=== PATIENT | male | born 1955 | race Caucasian/White ===

== ENCOUNTER → 2016-12-06 | Outpatient (CLI) | payer OTHER ==
--- NOTE | 2016-12-06 16:51 | XR ---
EXAMINATION TYPE: XR ankle complete LT DATE OF EXAM: 12/06/2016 CLINICAL HISTORY: Left ankle pain history of prior fracture 30 years ago TECHNIQUE: Frontal, lateral and oblique images of the left ankle are obtained. COMPARISON: None. FINDINGS: There is no acute fracture/dislocation evident in the left ankle. There is fixating screw s through healed fracture distal fibular diaphysis. There are fixating K wires and cerclage wires ove r healed fracture medial malleolus. Subchondral cystic change medial malleolus is present. The ankle mortise appears within normal limits. There is small inferior calcaneal spur. The overlying soft tis lupe appears unremarkable. IMPRESSION: There is no acute fracture or dislocation in the left ankle. Postsurgical and degenerati ve change left ankle noted.
== END | disposition home or self-care (01) ==
LOC: RADXRYALE 16:25
PROVIDERS: ATTEND Family Medicine
DX: T84.84XA Pain due to internal orthopedic prosthetic devices, implants and grafts, initial encounter (principal)

== ENCOUNTER → 2017-09-17 | Outpatient (CLI) | payer OTHER ==
--- NOTE | 2017-09-17 17:15 | XR ---
EXAMINATION TYPE: XR lumbar spine 2 or 3V DATE OF EXAM: 09/17/2017 COMPARISON: None HISTORY: Foot numbness. Polyneuropathy. TECHNIQUE: 3 views FINDINGS: The lumbar vertebra have normal alignment. There is minor spurring of the endplates. [employer] ior elements are intact. I see no significant disc space narrowing. Sacroiliac joints appear intact. IMPRESSION: Mild degenerative changes typical for age. No fracture.
== END | disposition home or self-care (01) ==
LOC: RADXRYALE 16:18
PROVIDERS: ATTEND Nurse Practitioner Family
DX: M47.816 Spondylosis without myelopathy or radiculopathy, lumbar region (principal); R20.2 Paresthesia of skin; G62.9 Polyneuropathy, unspecified
CPT/HCPCS: 72100

== ENCOUNTER → 2017-09-29 | Outpatient (CLI) | payer OTHER ==
--- NOTE | 2017-09-30 10:19 | US ---
EXAMINATION TYPE: US venous doppler duplex LE BI DATE OF EXAM: 09/29/2017 5:50 PM COMPARISON: NONE CLINICAL HISTORY: R20.2 Numbness G62.9 polyneuropathy. Pt states numbness and tingling bilateral feet / no known prior DVT SIDE PERFORMED: TECHNIQUE: The lower extremity deep venous system is examined utilizing real time linear array sonog mahsa with graded compression, doppler sonography and color-flow sonography. VESSELS IMAGED: External Iliac Vein (EIV) Common Femoral Vein Deep Femoral Vein Greater Saphenous Vein * Femoral Vein Popliteal Vein Small Saphenous Vein * Proximal Calf Veins (* superficial vessels) Right Leg: Negative for DVT Left Leg: Negative for DVT IMPRESSION: 1. No diagnostic evidence of DVT as visualized.
== END | disposition home or self-care (01) ==
LOC: RADUSMAIN 17:12
PROVIDERS: ATTEND Family Medicine
DX: R20.2 Paresthesia of skin (principal); G62.9 Polyneuropathy, unspecified
CPT/HCPCS: 93970

== ENCOUNTER → 2019-06-11 | Outpatient (CLI) | payer BC ==
--- NOTE | 2019-06-11 14:49 | NM ---
EXAMINATION TYPE: NM bone/joint limited DATE OF EXAM: 06/11/2019 COMPARISON: NONE HISTORY: Right hip pain TECHNIQUE: After the intravenous administration of 24.2 mCi Tc 99m MDP. Images acquired 3 hours pos t injection. Multiple views of pelvis and bilateral hip are submitted. There is no abnormal uptake within the visualized osseous structures to suggest acute process. Faint increased uptake involving the acetabulum of bilateral hip noted. Sclerotic area seen within the righ t iliac bone by CT scan not seen by bone scan therefore likely benign. IMPRESSION: Correlate for mild arthritic change involving the hips bilaterally correlate with x-ray a s clinically warranted
--- NOTE | 2019-06-11 16:31 | CT ---
EXAMINATION TYPE: CT abdomen pelvis w con DATE OF EXAM: 06/11/2019 COMPARISON: None INDICATION: Prostate CA DLP: 1252 mGycm, Automated exposure control for dose reduction was used. CONTRAST: 100 mL of Isovue 300. Study performed with Oral Contrast TECHNIQUE: Axial images were obtained from above the diaphragm to the pubic rami in the axial plane a t 5 mm thick sections. Reconstructed images are reviewed on the computer in the coronal plane. FINDINGS: Limited CT sections are obtained the lung bases. The lung bases are clear. CT ABDOMEN: Liver: Normal Spleen: Normal Pancreas: Normal Adrenal glands: The adrenal glands are normal. Gallbladder: Gallstone is at the neck of the gallbladder. Kidneys: No masses are evident. No hydronephrosis is present. There is a cortical renal cyst on the upper lateral pole right kidney measuring 1.2 cm in 19 Hounsfield units. Delayed images were obtain ed through the kidneys, which remain unremarkable. Aorta: Vascular calcification is within the aorta. Inferior vena cava: Normal. CT PELVIS: Loops of bowel within the abdomen and pelvis are normal. Diverticular changes are within the sigmoid colon. There are loops of bowel which are incompletely distended or lack oral contrast limiting th eir evaluation. Appendix: Normal as visualized. Urinary bladder: Normal. Genitourinary structures: Prostate is prominent. Osseous structures: No suspicious lytic or sclerotic lesions. IMPRESSIONS: 1. No suspicious changes to suggest metastatic prostate cancer. 2. Diverticulosis without acute diverticulitis. 3. Right renal cyst. 4. Cholelithiasis
== END | disposition home or self-care (01) ==
LOC: RADNMMAIN 10:36
PROVIDERS: ATTEND Family Medicine
DX: K57.90 Diverticulosis of intestine, part unspecified, without perforation or abscess without bleeding (principal); N28.1 Cyst of kidney, acquired; K80.20 Calculus of gallbladder without cholecystitis without obstruction; R93.89 Abnormal findings on diagnostic imaging of other specified body structures
CPT/HCPCS: 74177; 78300; A9503; Q9967

== ENCOUNTER 2020-09-25 07:40 | Day surgery (SDC) | payer BC ==
[2020-09-21 10:28] VITALS: BMI 29.7
[~2020-09-25 07:40] MED LIST: LACTATED RINGERS 1,000 ML IV SCH; LIDOCAINE 1% (10MG/ML) FOR IV START INTRADERMA PRN
[2020-09-25 08:17] VITALS: RESP 16; TEMP 97.3
[2020-09-25] MEDS ORDERED: PROPOFOL 10 MG/ML 20 ML VIAL IV ONE (08:31)
--- NOTE | 2020-09-25 08:49 | P.PCN ---
Date of Procedure: 09/25/20 Procedure(s) Performed: BRIEF HISTORY: Patient is a 64-year-old pleasant white male scheduled for an elective colonoscopy as a part of evaluation of prior history of colon polyps. Last colonoscopy was 3 years ago. PROCEDURE PERFORMED: Colonoscopy snare polypectomy. PREOPERATIVE DIAGNOSIS: History of colon polyps. IV sedation per Anesthesia. PROCEDURE: After informed consent was obtained, the patient, was brought into the endoscopy unit. IV sedation was administered by Anesthesia under continuous monitoring. Digital rectal examination was normal. Initially the Olympus CF-160 flexible video colonoscope was then inserted in the rectum, gradually advanced into the cecum without any difficulty. Careful examination was performed as the scope was gradually being withdrawn. Ileocecal valve and the appendiceal orifice were visualized and appeared normal. Prep was excellent. Mucosa of the cecum, ascending colon, transverse colon, appeared normal. In the distal transverse colon there was a 7-8 mm polyp removed by snare polypectomy. Moderate sigmoid diverticulosis seen. Rest of the descending colon, sigmoid colon, and rectum appeared normal. Retroflexion was performed in the rectum and grade 2 internal hemorrhoids were seen. The patient tolerated the procedure well. IMPRESSION: 7-8 mm distal transverse colon polyp status post polypectomy Scattered sigmoid diverticulosis Grade 2 internal hemorrhoids RECOMMENDATIONS: Findings of this examination were discussed with the patient as well as family. He was advised to follow with the biopsy results. If the biopsy shows an adenoma he can have a repeat colonoscopy in 5 years.
[2020-09-25 09:09] VITALS: BP 137/81; PULSE 67
== END 2020-09-25 09:30 | disposition home or self-care (01) ==
LOC: ORWHC2ENDO 07:40
PROVIDERS: ATTEND Internal Medicine Gastroenterology
DX: Z12.11 Encounter for screening for malignant neoplasm of colon (principal); D12.3 Benign neoplasm of transverse colon; K57.30 Diverticulosis of large intestine without perforation or abscess without bleeding; K64.1 Second degree hemorrhoids; I10 Essential (primary) hypertension; E78.5 Hyperlipidemia, unspecified; Z79.899 Other long term (current) drug therapy; Z86.010 Personal history of colon polyps; Z88.0 Allergy status to penicillin
CPT/HCPCS: 88305; 45385; J2704